=== PATIENT | male | born 2000 | race Native Hawaiian/Other Pacific Islander ===

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

== ENCOUNTER 2022-10-14 12:31 | Emergency (ER) | payer OTHER ==
[~2022-10-14] VITALS: Ht 188 cm; Wt 72.6 kg
[2022-10-14 12:35] VITALS: BP 139/81; TEMP 98.3
== END 2022-10-14 15:41 | disposition home or self-care (01) ==
LOC: ED 12:31
PROC: 2W3QX1Z Immobilization of Right Lower Leg using Splint (ICD-10-PCS; principal; 2022-10-14)
DX: S92.351A Displaced fracture of fifth metatarsal bone, right foot, initial encounter for closed fracture (principal); X58.XXXA Exposure to other specified factors, initial encounter
CPT/HCPCS: 96372; 99283; J1100; J1885

== ENCOUNTER 2022-12-19 20:03 | Emergency (ER) | payer OTHER ==
[~2022-12-19] VITALS: Ht 188 cm; Wt 72.6 kg
[2022-12-19 20:07] VITALS: TEMP 97.9
[2022-12-19 21:07] LABS: PLATELET COUNT 269 K/uL (142-355)
[2022-12-19 21:15] LABS: POTASSIUM 2.8 mmol/L (3.6-5.2)
[2022-12-19 21:19] LABS: PARTIAL THROMBOPLASTIN TIME 25.9 SECONDS (23.9-36.7)
[2022-12-19 22:50] VITALS: BP 123/54
== END 2022-12-19 22:50 | disposition home or self-care (01) ==
LOC: ED 20:03
PROVIDERS: Family Medicine
DX: S42.001A Fracture of unspecified part of right clavicle, initial encounter for closed fracture (principal); V29.99XA Rider (driver) (passenger) of other motorcycle injured in unspecified traffic accident, initial encounter; R07.9 Chest pain, unspecified
CPT/HCPCS: 36415; 80053; 85027; 85610; 85730; 96374; 99284; J1885